=== PATIENT | female | born 1980 | race Caucasian/White ===

== ENCOUNTER 2018-02-26 15:09 | Inpatient (IN) | payer MEDICAID ==
[2018-02-26] MEDS ORDERED: METHYLERGONOVINE 0.2 MG INJ IM (21:30)
[2018-02-26] MEDS ORDERED: LIDOCAINE 1% (MPF) 30 ML INJ INJ (21:30)
[2018-02-26] MEDS ORDERED: ACETAMINOPHEN/CODEINE #3 TAB PO (21:30)
[2018-02-26] MEDS ORDERED: IBUPROFEN 600 MG TAB PO (21:30)
[2018-02-26] MEDS ORDERED: CARBOPROST 250 MCG INJ IM (21:30)
[2018-02-26] MEDS ORDERED: OXYTOCIN 30 UNITS/LR 500 ML IV (21:30)
[2018-02-26] MEDS ORDERED: LACTATED RINGER'S 1,000 ML IV* (21:30)
[2018-02-26] MEDS ORDERED: MISOPROSTOL 200 MCG TAB PR (21:30)
[2018-02-26] MEDS: HYDROCODONE/APAP (5/325) TAB PO (21:52)
[2018-02-26 22:52] LABS: ADD MAN DIFF? NO
[2018-02-26 22:57] LABS: BASOPHILS % 0.4 % (0.0-2.0); EOSINOPHILS % 0.3 % (0.0-7.0); HEMATOCRIT 38.1 % (37.0-47.0); HEMOGLOBIN 12.8 g/dl (12.0-16.0); LYMPHOCYTES # 1.8 10^3/ul (0.8-2.9); MEAN CORPUSCULAR HEMOGLOBIN 26.3 pg (29.0-33.0); MEAN CORPUSCULAR HGB CONC 33.6 g/dl (32.0-37.0); MEAN CORPUSCULAR VOLUME 78.4 fl (82.0-101.0); MEAN PLATELET VOLUME 10.2 fl (7.4-10.4); MONOCYTE # 0.5 10^3/ul (0.3-0.9); MONOCYTES % 6.4 % (0.0-11.0); NEUTROPHIL # 5.6 10^3/ul (1.6-7.5); NEUTROPHILS % 70.6 % (39.0-77.0); PLATELET COUNT 247 10^3/UL (140-415); RED BLOOD COUNT 4.86 10^6/ul (4.20-5.40); RED CELL DISTRIBUTION WIDTH 16.1 % (11.5-14.5)
[2018-02-26 23:16] LABS: INR 0.91; PROTIME 12.3 Sec (11.9-14.9)
[2018-02-26 23:17] LABS: PARTIAL THROMBOPLASTIN TIME 27.5 Sec (25.0-35.0)
[2018-02-26] MEDS: MISOPROSTOL 25 MCG CAPSULE PO (23:59)
[2018-02-26] MEDS: AMPICILLIN 2 GM/NS (PMX) 100 ML IV (23:59)
[2018-02-26] MEDS: LACTATED RINGER'S 1,000 ML IV* (23:59)
[2018-02-27] MEDS: AMPICILLIN 1 GM/NS (PMX) 50 ML IV ×5 (05:27→21:53)
[2018-02-27] MEDS: MISOPROSTOL 25 MCG CAPSULE PO ×2 (05:28→15:20)
[2018-02-27] MEDS: LACTATED RINGER'S 1,000 ML IV* ×2 (07:05→11:26)
[2018-02-27] MEDS: BUTORPHANOL 2 MG INJ IV ×2 (08:05→20:18)
[2018-02-27 14:58] LABS: RAPID PLASMA REAGIN NONREACTIVE (NR)
[2018-02-27] MEDS ORDERED: FENTAnyl 2MCG/ML-ROPIV 0.2% 100 ML (23:53)
[2018-02-28] MEDS: LACTATED RINGER'S 1,000 ML IV* ×4 (00:14→11:03)
[2018-02-28] MEDS ORDERED: NALOXONE (0.4 MG/ML) INJ IV (00:30)
[2018-02-28] MEDS ORDERED: FENTAnyl 2MCG/ML-ROPIV 0.2% 100 ML BAG EPI (00:30)
[2018-02-28] MEDS ORDERED: OXYTOCIN 30 UNITS/LR 500 ML IV ×2 (01:00→05:30)
[2018-02-28] MEDS: OXYTOCIN 30 UNITS/LR 500 ML IV ×2 (01:13→05:12)
[2018-02-28] MEDS: AMPICILLIN 1 GM/NS (PMX) 50 ML IV (01:30)
[2018-02-28] MEDS: ONDANSETRON 4 MG INJ IV (05:11)
[2018-02-28] MEDS ORDERED: ACETAMINOPHEN 325 MG TAB PO (05:30)
[2018-02-28] MEDS ORDERED: ZOLPIDEM 5 MG TAB PO (05:30)
[2018-02-28] MEDS ORDERED: HYDROCODONE/APAP (5/325) TAB PO (05:30)
[2018-02-28] MEDS ORDERED: CARBOPROST 250 MCG INJ IM (05:30)
[2018-02-28] MEDS ORDERED: MISOPROSTOL 200 MCG TAB PR (05:30)
[2018-02-28] MEDS ORDERED: DIPHENHYDRAMINE 50 MG INJ IV (05:30)
[2018-02-28] MEDS ORDERED: DIBUCAINE 1% 30 GM OINT PR (05:30)
[2018-02-28] MEDS ORDERED: METHYLERGONOVINE 0.2 MG INJ IM (05:30)
[2018-02-28] MEDS: DEXTROSE 5%-LR 1,000 ML IV (08:05)
[2018-02-28] MEDS: IBUPROFEN 600 MG TAB PO ×3 (08:24→17:28)
[2018-02-28] MEDS: WITCH HAZEL/GLYCERIN PAD PR (18:37)
[2018-02-28] MEDS: LANOLIN 7 GM TUBE TOP (18:37)
[2018-02-28] MEDS: BENZOCAINE 20% 56 ML SPRAY TOP (18:37)
[2018-02-28] MEDS: SENNA/DOCUSATE NA (8.6MG/50MG) TAB PO (22:01)
[2018-03-01] MEDS: IBUPROFEN 600 MG TAB PO ×5 (00:43→23:57)
[2018-03-01 09:23] LABS: ADD MAN DIFF? NO
[2018-03-01 09:25] LABS: WHITE BLOOD COUNT 7.7 10^3/ul (4.8-10.8)
[2018-03-01 09:25] LABS: BASOPHILS % 0.5 % (0.0-2.0); EOSINOPHILS # 0.1 10^3/ul (0.0-0.5); EOSINOPHILS % 1.4 % (0.0-7.0); HEMATOCRIT 32.2 % (37.0-47.0); HEMOGLOBIN 10.5 g/dl (12.0-16.0); LYMPHOCYTES # 2.4 10^3/ul (0.8-2.9); LYMPHOCYTES % 31.5 % (15.0-51.0); MEAN CORPUSCULAR HEMOGLOBIN 26.1 pg (29.0-33.0); MEAN CORPUSCULAR HGB CONC 32.6 g/dl (32.0-37.0); MEAN CORPUSCULAR VOLUME 79.9 fl (82.0-101.0); MEAN PLATELET VOLUME 10.6 fl (7.4-10.4); MONOCYTE # 0.5 10^3/ul (0.3-0.9); MONOCYTES % 6.2 % (0.0-11.0); NEUTROPHIL # 4.6 10^3/ul (1.6-7.5); NEUTROPHILS % 59.7 % (39.0-77.0); PLATELET COUNT 186 10^3/UL (140-415); RED BLOOD COUNT 4.03 10^6/ul (4.20-5.40); RED CELL DISTRIBUTION WIDTH 16.9 % (11.5-14.5)
[2018-03-02] MEDS: IBUPROFEN 600 MG TAB PO ×2 (05:42→12:00)
[2018-03-02] MEDS ORDERED: MEASLES,MUMPS,RUBELLA VACCINE INJ SC* (09:00)
[2018-03-02] MEDS: DIPHTH/TET/ACEL PERTUSS (ADULT) 0.5 ML VIAL IM* (12:37)
== END 2018-03-02 15:07 | disposition home or self-care (01) | DRG 775 ==
LOC: OBT 15:09 → PP1 02-28 06:27 → L-D 15:10 → OBT 21:33 → L-D 21:33
PROVIDERS: Obstetrics & Gynecology
PROC: 3E033VJ Introduction of Other Hormone into Peripheral Vein, Percutaneous Approach (ICD-10-PCS; 2018-02-26)
PROC: 10E0XZZ Delivery of Products of Conception, External Approach (ICD-10-PCS; principal; 2018-02-28)
PROC: 0KQM0ZZ Repair Perineum Muscle, Open Approach (ICD-10-PCS; 2018-02-28)
DX: O69.81X0 Labor and delivery complicated by cord around neck, without compression, not applicable or unspecified (principal); O70.1 Second degree perineal laceration during delivery; Z37.0 Single live birth; Z3A.40 40 weeks gestation of pregnancy
CPT/HCPCS: 62319; 76815; 85025; 85610; 85730; 86592; 86850; 86900; 86901; 90715; 99217; 99464

== ENCOUNTER 2018-03-05 07:57 | Emergency (ER) | payer MEDICAID ==
[2018-03-05] MEDS: ACETAMINOPHEN 500 MG TAB PO (10:25)
[2018-03-05] MEDS: DEXAMETHASONE 10 MG/ML 1 ML INJ IM (10:51)
== END 2018-03-05 12:13 | disposition home or self-care (01) ==
LOC: FTE 07:57
DX: O92.29 Other disorders of breast associated with pregnancy and the puerperium (principal); Z87.891 Personal history of nicotine dependence
CPT/HCPCS: 76536; 96372; 99285-25